=== PATIENT | male | born 1985 | race Caucasian/White ===

== ENCOUNTER 2021-06-12 09:50 | Emergency (ER) | payer MEDICAID ==
[~2021-06-12] VITALS: Ht 177.8 cm; Wt 84.8 kg
[2021-06-12] MEDS ORDERED: IBUP800T27 PO (10:24)
[2021-06-12] MEDS ORDERED: PRED20TA2 PO (10:24)
[2021-06-12] MEDS ORDERED: PROMETHAZINE HCL 25 MG/ML 1ML IM ONE (10:30)
[2021-06-12] MEDS ORDERED: MORPHINE SULFATE INJECTION 2 MG/ML SYRG IM ONE (10:30)
[2021-06-12 10:35] VITALS: BP 138/77
== END 2021-06-12 10:57 | disposition home or self-care (01) ==
LOC: ER 09:50
DX: G89.29 Other chronic pain (principal); M54.50 Low back pain, unspecified; F12.10 Cannabis abuse, uncomplicated; M62.838 Other muscle spasm; Z76.0 Encounter for issue of repeat prescription
CPT/HCPCS: 96372; 99284; J2270; J2550